=== PATIENT | female | born 1995 | race Two or more races ===

== ENCOUNTER 2025-09-16 08:25 | Outpatient (AMB) | payer OTHER, SELFPAY ==
[2025-09-16 13:31] VITALS: BMI 37.1
--- NOTE | 2025-09-16 13:31 | MHC.OFFVISWM ---
VS Expanded 09/16/25 13:31 Height 5 ft 3 in Weight 209 lb 4 oz BMI 37.1 Body Fat % 45.4 Body Fat Mass 94.4 Fat Free Mass 114.8 Visceral Fat Rating 10 Body Water % 39.5 Body Water Mass 82.6 Basal Metabolic Rate/Score 1,647 Intake Visit Reasons: [employer] [facility] BMI 37.1 PRACTICE MANAGERS Sales Ledger Administrator Required: Yes Sales Ledger Administrator Services: Sales Ledger Administrator Present Information Interpreted: clinical only Allergies tramadol Allergy (Verified 09/16/25 13:34) tachycardia Medication List - Last Reconciled 09/16/25 by Dick Moffett MD No Known Home Meds HPI HPI [employer] [facility] BMI 37.1 PRACTICE MANAGERS: Details: Start time: 1.25m, End time: 2.25pm ?I spent 55 minutes speaking with the patient on the phone plus an additional 5 minutes reviewing and updating records for a total of 60 minutes HPI Comments Details: Previous weight loss efforts: self diets and exercise Wakes up: 3am, Sleeps: 8pm Breakfast: 8am ([employer] don[employer] wrap with egg and voss) Lunch: 1pm (rice, beans, chicken) Dinner: 6pm (salad) Snacks: 10am (fruits), 4pm (fruits) Exercise: none, may buy a treadmill Beverages: Coffee (1 cup/d, black), Tea: (1 cup/d plain), Soda: none, Juice: none, ETOH: none PFSH Medical History (Updated 09/16/25 @ 14:14 by Dick Moffett MD) BMI 37.0-37.9, adult Obesity Hypoglycemia PCOS (polycystic ovarian syndrome) Family History (Updated 07/15/25 @ 13:46 by TYE Sanderson) Maternal Grandmother Lung cancer Maternal Uncle Colon cancer Social History (Updated 07/15/25 @ 13:47 by TYE Sanderson) Household Members: Family Housing: Apartment Alcohol intake: never Patient Tobacco Use Status: Never used Tobacco Telehealth Telehealth Telehealth Platform: Telephone Location of provider rendering services: practice address Location of patient: address on file Patient Identification confirmed using: Name, : Yes Telehealth method: voice only Patient verbally consented to treatment: Yes Patient verbally consented to billing insurance company: Yes Patient informed of any privacy concerns related to visit: Yes Minutes spent on Phone/Video with Pt.: 60 Assessment & Plan Assessment & Plan (1) Obesity: Code(s): E66.9 - Obesity, unspecified Category: Medical Qualifiers: Obesity type: due to excess calories Obesity classification: adult class 2 (BMI 35 - 39.9) Serious obesity comorbidity presence: without serious comorbidity Body mass index: BMI 37.0-37.9 Qualified Code(s): E66.812 - Obesity, class 2; E66.09 - Other obesity due to excess calories; Z68.37 - Body mass index [BMI] 37.0-37.9, adult Plan: 1.?Nutritional counseling. Start with one premade PREMIER protein (buy at [employer] or [employer]) shake (mix 4oz of Premier mixed with 4oz low fat unsweetened almond milk each) at 4am-6am, one protein bar (Fit Crunch protein bar, buy at [employer], or [employer]) at 7am-9am, another premade PREMIER protein shake (mix 4oz of Premier mixed with 4oz low fat unsweetened almond milk each) at 10am-12pm, another [employer] protein bar at 1pm-3pm, dinner at 4pm (8 forks of protein and 8 forks of salad/vegetables) and another premade PREMIER protein shake (mix 4oz of Premier mixed with 4oz low fat unsweetened almond milk each) at 6pm-8pm So you do 3 protein shakes, 2 protein bars and one meal per day. Meal to include lean meat (beef, fish, pork, turkey, chicken), or [place] yogurt, or egg whites, or beans with a salad with olive oil and fruits (berries, pears, apples, kiwi). Avoid salt, breads, potatoes, rice, pasta, desserts. 3. Each shake would be drunk slowly, like coffee in a period of 2 hours. 4. Cut each bar in 4 pieces and eat each piece in 30min ?to make each bar last 2 hours. 5. I emphasized the importance of measuring accurately the food portion and measure it when serving the food in plate 6. The meal portions include 8 full-size forks of meat and 8 full-size forks of salad. You always eat the meat portion but you can replace up to 4 forks for salad/vegetables with rice, potatoes or pasta, or a fruit ?if you like. The less you do it the better weight loss will be. 7. One full-size fork is what it can be scooped on the fork without falling aside and not what can be bit with the fork. Use regular forks like those you find in a typical restaurant. 8.? Please buy the body composition scale we discussed and send me weight measurements as soon as possible and then once a week. Always include your diet and exercise plan. 9. Start treadmill with an incline of 2.0 and speed of 3.0. Increase incline by 1 every 3 min to a max incline of 8.0, stay 3min at 8.0 and then return to 2.0 and repeat same steps until calorie goal is met. Goal is to burn 2000 calories per week on exercise, which means either 300 calories daily. 10. Alternatively start stationary bike at a resistance level of 4.0 Increase level by 1.0 every 3 min to a max level of 10.0. Stay at this level for 3 min and then return to level 4.0 and repeat same steps until 300 calories are burned. Velocity target is 12mph and heart rate is 145 bpm. Goal is to burn 2000 calories per week on exercise 11. The best choice would be to purchase a stationary bike, elliptical or treadmill at home that can track calories. 12. Goal is to lose at least 1.5-2lbs per week 13. Goal to lose at least 10% of your weight, which is about 20lbs. Minimum weight goal: 190lbs 14. Please follow the diet plan exactly without any change. If you don't like something about the plan or you feel hungry you need to communicate with me so I can help you revise the plan. You should not change the plan yourself
== END 2025-09-16 14:27 | disposition home or self-care (01) ==
LOC: HO.HBS 08:25
PROVIDERS: PCP Physician Assistant; Visit Provider Surgery
DX: E66.812 Obesity, class 2 (principal); Z68.37 Body mass index [BMI] 37.0-37.9, adult
CPT/HCPCS: 98011